=== PATIENT | male | born 1950 | race Caucasian/White ===

== ENCOUNTER → 2021-05-06 | Outpatient (CLI) | payer OTHER ==
[~2021-05-06] MED LIST: CARDIZEM CD120 MG PO; CEPHALEXIN500 MG PO; LAMICTAL 25 MG25 MG PO; LAMOTRIGINE150 MG PO; PRADAXA150 MG PO
== END ==
LOC: SJCVC 15:47
PROVIDERS: ATTEND Internal Medicine
DX: I95.1 Orthostatic hypotension (principal); R06.02 Shortness of breath; R42 Dizziness and giddiness; E78.5 Hyperlipidemia, unspecified; I48.91 Unspecified atrial fibrillation; G40.909 Epilepsy, unspecified, not intractable, without status epilepticus; Z98.890 Other specified postprocedural states; Z86.79 Personal history of other diseases of the circulatory system; Z72.89 Other problems related to lifestyle; Z79.899 Other long term (current) drug therapy

== ENCOUNTER 2021-05-08 19:03 | Emergency (ER) | payer OTHER ==
[~2021-05-08] VITALS: Ht 175.3 cm; Wt 60.3 kg
--- NOTE | ~2021-05-08 | EMS ---
[address] [address] EMS Patient Care Report Name: ERLIN BERGER Room #: REG LITO Presley#: [id number] Admission: 05/08/21 Attend Phys: Discharge: Date of : 54 Report #: [id number] THIS REPORT FOR: //name// Report Transmitted: 05/08/2021 19:36 EMS Care Summary [facility] MED-ACT Incident [id number] @ 05/08/2021 18:29 Incident Location [address] [place] [address] Patient ERLIN BERGER Male, 70 Years 1950 Patient Address [address] [place] [address] Patient History Seizures, Patient Allergies Intravenous Dye, Patient Medications None Reported, Chief Complaint "I felt light headed" Disposition Transported No Lights/[place]patch Reason Unconscious/Fainting Transported To [facility] Narrative Upon arrival pt was found with S49 and bystanders. Pt was sitting on a chair, a&ox3, airway open, self maintained, respirations regular, pulse regular, pale, diaphoretic, warm, skin. Crew was informed by pt that he was walking into a store when he became light headed. Pt sat on the floor and a bystander called [address] [address] EMS Patient Care Report Name: ERLIN BERGER Room #: REG ER Sakina#: [id number] Admission: 05/08/21 Attend Phys: Discharge: Date of : 54 Report #: [id number] 911. current temperatures are over 90 degrees. Upon arrival rapid assessment was performed. Vitals were obtained. Pt denied chest pain, SOA, pain anywhere, or over exerting himself today. Pt was assisted to stretcher, was secured, and, was taken to ambulance. Pt was placed on playground monitor, 12 lead ECG was obtained being unremarkable. IV access was obtained, fluids were obtained, and pt was transported. Detailed assessment was done en route being normal or not significant except where noted. Vitals were monitored and rechecked. Pt's vitals, skin color, and light headedness improved during transport. Pt care was transferred to ED RN. Pt was moved to ED bed without complications. 99.8 Initial Vitals @18:47P: 109,SpO2: 94,TX Suspected: false @PTAP: 120,R: 20,BP: 87/58,Pain: 0/10,GCS: 15,SpO2: 92,Revised Trauma: 11, @18:54P: 104,R: 20,BP: 120/61,Pain: 0/10,GCS: 15,SpO2: 95,Revised Trauma: 12, @18:46P: 106,R: 20,BP: 125/71,Pain: 0/10,GCS: 15,Temp: 99.8F,SpO2: 92,Revised Trauma: 12, Assessments @18:57MENTAL:No Abnormalities,SKIN:No Abnormalities,HEENT:Head/Face: No Abnormalities,Eyes: No Abnormalities,Neck/Airway: No Abnormalities,LUNG SOUNDS:General: No Abnormalities,Left Upper: No Abnormalities,Right Upper: No Abnormalities,Left Lower: No Abnormalities,Right Lower: No Abnormalities,ABDOMEN:General: No Abnormalities,Left Upper: No Abnormalities,Right Upper: No Abnormalities,Left Lower: No Abnormalities,Right Lower: No Abnormalities,PELVIS//GI:EXTREMITIES:Left Arm: No Abnormalities,Right Arm: No Abnormalities,Left Leg: No Abnormalities,Right Leg: No Abnormalities,PULSE:NEURO:No Abnormalities, Impression Syncope / Fainting Procedures @18:49Normal Saline (.9% NaCl) 500cc (18 ga) Site: Forearm-LeftResponse: UnchangedSucceeded@18:56Surgical Mask on PatientResponse: Unchanged@18:4712-Lead ECG Timeline [employer] COORDINATOR,BP: 87/58 M,PULSE: 120,RR: 20 R,SPO2: 92 Ox,ETCO2: ,BG: ,PAIN: 0,GCS: 15, 18:27,Call Received 18:27,Psap Call 18:29,Dispatched 18:29,En Route 18:37,On Scene 18:39,At Patient [address] [address] EMS Patient Care Report Name: ERLIN BERGER Room #: REG Sakina#: [id number] Admission: 05/08/21 Attend Phys: Discharge: Date of : 54 Report #: [id number] 18:46,BP: 125/71 M,PULSE: 106,RR: 20 R,SPO2: 92 Ox,ETCO2: ,BG: ,PAIN: 0,GCS: 15, 18:47,12-Lead ECG, 18:47,BP: / M,PULSE: 109,RR: R,SPO2: 94 Ox,ETCO2: ,BG: ,PAIN: ,GCS: , 18:49,Depart Scene 18:49,Normal Saline (.9% NaCl) 500cc 18 ga Site: Forearm-Left,Response: UnchangedSucceeded, 18:54,BP: 120/61 M,PULSE: 104,RR: 20 R,SPO2: 95 Ox,ETCO2: ,BG: ,PAIN: 0,GCS: 15, 18:56,Surgical Mask on Patient,Response: Unchanged 19:00,At Destination 19:21,Call Closed Disclaimer v1.1 Copyright 2020 [employer] This EMS Care Summary contains data elements from the applicable legal record (which may be displayed differently). It is designed to provide pertinent information for the following purposes: continuity of care, clinical quality, and state data reporting. The complete legal record is available to ED staff and administrators of the receiving hospital in [employer]'s Patient Tracker. All data is provided "as is."
[~2021-05-08 19:03] MED LIST changes: -CEPHALEXIN500 MG PO
[2021-05-08 19:29] LABS: HEMATOCRIT 31.6 % (42.0-52.0); HEMOGLOBIN 10.8 gm/dL (14.0-18.0); MCH 37.9 pg (26.0-34.0); MCHC 34.1 g/dL (28.0-37.0); MCV 111.3 fL (80.0-100.0); PLATELET COUNT 145 thou/uL (150-400); RBC 2.84 mil/uL (4.50-6.00); WBC 3.3 thou/uL (4.0-11.0)
[2021-05-08 19:39] LABS: ANION GAP 20 mmol/L (7-16); BUN 10 mg/dL (7-18); CALCIUM 8.4 mg/dL (8.5-10.1); CHLORIDE 102 mmol/L (98-107); CO2 21 mmol/L (21-32); CREATININE 1.3 mg/dL (0.7-1.3); GLUCOSE 73 mg/dL (74-106); POTASSIUM 3.2 mmol/L (3.5-5.1); SODIUM 143 mmol/L (136-145)
[2021-05-08 19:49] LABS: ALBUMIN 3.5 g/dL (3.4-5.0); SGOT 117 U/L (15-37); SGPT 54 U/L (30-65); TOTAL BILIRUBIN 0.5 mg/dL (0.2-1.0); TOTAL PROTEIN 6.2 g/dL (6.4-8.2); TROPONIN-I <0.06 ng/mL (<0.06)
[2021-05-08 20:19] LABS: ABSOLUTE NEUTROPHILS 1.6 thou/uL (1.4-8.2); MACROCYTES 3+; POLYCHROMASIA 1+
[2021-05-08 20:33] LABS: URINE BILIRUBIN NEGATIVE (Negative); URINE BLOOD TRACE (Negative); URINE CLARITY CLEAR; URINE COLOR YELLOW; URINE GLUCOSE-RANDOM* NEGATIVE (Negative); URINE KETONES NEGATIVE (Negative); URINE NITRITE-REFLEX NEGATIVE (Negative); URINE PROTEIN (DIPSTICK) NEGATIVE (Negative)
[2021-05-08 20:34] LABS: URINE LEUKOCYTES-REFLEX 2+ (Negative)
[2021-05-08 20:51] LABS: BACTERIA-REFLEX 1-9 Few /HPF (None Seen); CASTS None Seen /LPF (None Seen); CRYSTALS None Seen /LPF (None Seen); SQUAMOUS 0-3 Few /LPF (0-3); URINE RBC 1-2 Rare /HPF (NONE SEEN); URINE WBC-REFLEX 6-15 Few /HPF (0-5)
[2021-05-08] MEDS ORDERED: CEPHALEXIN500 MG PO (21:10)
[2021-05-08 21:53] VITALS: BP 122/67
--- NOTE | 2021-05-09 07:31 | EKG ---
[place] [address] [facility] [place] [employer] [place] [address] ELECTROCARDIOGRAM REPORT Name: ERLIN BERGER [facility] [id number] Admission: 05/08/21 Attend Phys: Discharge: 05/08/21 Date of : 54 Report #: [id number] [facility] ED Test Date: 2021-05-08 Test Time: 19:40:07 Pat Name: ERLIN BERGER Department: Room: Gender: M Food Vendor: magnus : 1950 Requested By: Davey Hampton Order Number: [id number] MD: Santosh Cuellar Measurements Intervals [place] Rate: 88 P: -1 VT: 143 QRS: 35 QRSD: 91 T: 61 QT: 351 QTc: 425 Interpretive Statements Sinus rhythm Artifact in lead(s) I,II,III,aVR,aVL Compared to ECG 03/24/2013 09:14:43 No significant changes Electronically Signed On 05-09-2021 7:31:21 CDT by Santosh Cuellar [email or web address] <ELECTRONICALLY SIGNED> By: Santosh Cuellar MD, [facility] 05/09/21 0731 39 39 Santosh Cuellar MD, FACC /EPI
== END 2021-05-08 21:20 | disposition home or self-care (01) ==
LOC: ER 19:03
PROVIDERS: Emergency Medicine
DX: R55 Syncope and collapse (principal); N39.0 Urinary tract infection, site not specified; Z88.8 Allergy status to other drugs, medicaments and biological substances; Z98.890 Other specified postprocedural states

== ENCOUNTER 2021-05-24 16:47 | Emergency (ER) | payer OTHER ==
[~2021-05-24] VITALS: Ht 175.3 cm; Wt 61.2 kg
--- NOTE | ~2021-05-24 | EMS ---
[address] [address] EMS Patient Care Report Name: ERLIN BERGER Room #: REG LITO Presley#: [id number] Admission: 05/24/21 Attend Phys: Discharge: Date of : 54 Report #: [id number] THIS REPORT FOR: //name// Report Transmitted: 05/24/2021 16:24 EMS Care Summary [facility] MED-ACT Incident [id number] @ 05/24/2021 16:10 Incident Location [address] [place] [address] Patient ERLIN BERGER Male, 70 Years 1950 Patient Address [address] [place] [address] Patient History None Reported, Patient Allergies Intravenous Dye, Patient Medications None Reported, Chief Complaint near syncope Disposition Transported No Lights/[place] Dispatch Reason Convulsions/Seizure Transported To [facility] Narrative Dispatched to a grocery store for a seizure. The pt is found sitting on a chair by the self check out. He is alert and in no apparent distress. Bystanders on scene report the pt was checking out his groceries when he started to get light headed, pale and diaphoretic. They helped sit him in a chair and reported he [facility] [address] [place] [address] EMS Patient Care Report Name: ERLIN BERGER Room #: REG ER Sakina#: [id number] Admission: 05/24/21 Attend Phys: Discharge: Date of : 54 Report #: [id number] did not lose consciousness or fall. They deny the pt having any seizure like activity. The pt said he was feeling light headed but once he sat down he started feeling better. The pt denies any shortness of breath, weakness, pain or nausea/vomiting. He said he was taken by ambulance in April for the same thing and was diagnosed with hypotension and told he was dehydrated. They gave him fluids and discharged him. The pt said he has felt fine since then. He is able to stand and pivot with assistance to the cot. He is moved to the ambulance and transported to [place] without lights and sirens. The pt remained unchanged during transport and upon arrival at ED the pt is able to scoot over to ED bed. Pt care/report left with nurse. Initial Vitals @16:30P: 77,R: 12,SpO2: 99,DE Suspected: false @16:37P: 77,R: 12,BP: 136/64,SpO2: 95, @16:26P: 88,R: 12,BP: 92/58,Pain: 0/10,GCS: 15,Temp: 98F,Glucose: 168,SpO2: 98,Revised Trauma: 12,DE Suspected: false Assessments @16:25MENTAL:Person Oriented,Time Oriented,Place Oriented,Event Oriented,SKIN:Diaphoresis,Pale,HEENT:Head/Face: No Abnormalities,Neck/Airway: No Abnormalities,LUNG SOUNDS:General: No Abnormalities,ABDOMEN:General: No Abnormalities,PELVIS//GI:EXTREMITIES:Left Arm: No Abnormalities,Right Arm: No Abnormalities,Left Leg: No Abnormalities,Right Leg: No Abnormalities,PULSE:NEURO:No Abnormalities, Impression Hypotension Procedures @16:3012-Lead ECG Timeline 16:08,Call Received 16:08,Psap Call 16:10,Dispatched 16:11,En Route 16:20,On Scene 16:22,At Patient 16:26,BP: 92/58 M,PULSE: 88,RR: 12 R,SPO2: 98 Ox,ETCO2: ,B,PAIN: 0,GCS: 15, 16:30,12-Lead ECG, 16:30,BP: / M,PULSE: 77,RR: 12 R,SPO2: 99 Ox,ETCO2: ,BG: ,PAIN: ,GCS: , 16:33,Depart Scene 16:37,BP: 136/64 M,PULSE: 77,RR: 12 R,SPO2: 95 Ox,ETCO2: ,BG: ,PAIN: ,GCS: , 16:44,At Destination 16:59,Call Closed [facility] [address] [place] [address] EMS Patient Care Report Name: ERLIN BERGER NEG Room #: REG [facility] [id number] Admission: 05/24/21 Attend Phys: Discharge: Date of : 54 Report #: [id number] Disclaimer v1.1 Copyright 2020 [employer] This EMS Care Summary contains data elements from the applicable legal record (which may be displayed differently). It is designed to provide pertinent information for the following purposes: continuity of care, clinical quality, and state data reporting. The complete legal record is available to ED staff and administrators of the receiving hospital in [facility]'s Patient Tracker. All data is provided "as is."
[~2021-05-24 16:47] MED LIST changes: +CEPHALEXIN500 MG PO
[2021-05-24] MEDS ORDERED: HYDROCODON-ACE1 EAC7 PO (17:06)
[2021-05-24] MEDS ORDERED: LOSARTAN POTAS100 MG PO (17:06)
[2021-05-24] MEDS ORDERED: CEPHALEXIN500 MG PO (17:07)
[2021-05-24] MEDS ORDERED: LAMOTRIGINE150 MG PO (17:07)
[2021-05-24 17:39] LABS: URINE BLOOD NEGATIVE (Negative); URINE CLARITY CLEAR; URINE COLOR YELLOW; URINE GLUCOSE-RANDOM* NEGATIVE (Negative); URINE KETONES TRACE (Negative); URINE LEUKOCYTES-REFLEX NEGATIVE (Negative); URINE NITRITE-REFLEX NEGATIVE (Negative); URINE PROTEIN (DIPSTICK) NEGATIVE (Negative); URINE SPECIFIC GRAVITY 1.015 (1.005-1.035); URINE UROBILINOGEN 0.2 E.U./dl (0.2-1.0)
[2021-05-24 17:42] LABS: ICTOTEST (BILI CONFIRMATORY) Negative (Negative); URINE BILIRUBIN NEGATIVE (Negative)
[2021-05-24 17:50] LABS: HEMATOCRIT 30.5 % (42.0-52.0); HEMOGLOBIN 10.7 gm/dL (14.0-18.0); MCH 37.6 pg (26.0-34.0); MCHC 34.9 g/dL (28.0-37.0); MCV 107.8 fL (80.0-100.0); PLATELET COUNT 82 thou/uL (150-400); RBC 2.83 mil/uL (4.50-6.00); RDW 13.5 % (10.5-14.5); WBC 2.9 thou/uL (4.0-11.0)
[2021-05-24 18:07] LABS: ALBUMIN 3.2 g/dL (3.4-5.0); ANION GAP 11 mmol/L (7-16); BUN 8 mg/dL (7-18); CALCIUM 8.8 mg/dL (8.5-10.1); CO2 31 mmol/L (21-32); GLUCOSE 115 mg/dL (74-106); LIPASE 199 U/L (73-393); POTASSIUM 2.6 mmol/L (3.5-5.1); SGOT 92 U/L (15-37); SGPT 49 U/L (16-63); SODIUM 136 mmol/L (136-145); TOTAL BILIRUBIN 0.7 mg/dL (0.2-1.0); TOTAL PROTEIN 6.4 g/dL (6.4-8.2); TROPONIN-I <0.06 ng/mL (<0.06)
[2021-05-24 18:08] LABS: CHLORIDE 94 mmol/L (98-107)
[2021-05-24 18:25] LABS: ABSOLUTE NEUTROPHILS 1.7 thou/uL (1.4-8.2); NUCLEATED RBCS 1 /100WBC
[2021-05-24 18:26] LABS: MACROCYTES 2+
[2021-05-24] MEDS ORDERED: POTASSIUM20 PO (20:01)
[2021-05-24 20:55] VITALS: BP 130/80
--- NOTE | 2021-05-25 08:13 | EKG ---
[place] [address] [facility] [employer] [place] [address] ELECTROCARDIOGRAM REPORT Name: ERLIN BERGER Room #[facility]ENT[facility]ak[facility] [id number] Admission: 05/24/21 Attend Phys: Discharge: 05/24/21 Date of : 54 Report #: [id number] [facility] ED Test Date: 2021-05-24 Test Time: 16:55:22 Pat Name: ERLIN BERGER Department: Room: Gender: Supply Coordinator: KF : 1950 Requested By: Davey Hampton Order Number: [id number] MD: Santosh Cuellar Measurements Intervals [place] Rate: 71 P: 34 IN: 145 QRS: 29 QRSD: 104 T: 65 QT: 396 QTc: 431 Interpretive Statements Sinus rhythm Compared to ECG 05/08/2021 19:40:07 No significant changes Electronically Signed On 05-25-2021 8:12:53 CDT by Santosh Cuellar [email or web address] <ELECTRONICALLY SIGNED> By: Santosh Cuellar MD, [facility] 05/25/21 0812 1655 1655 Santosh Cuellar MD, FACC /EPI
== END 2021-05-24 20:55 | disposition home or self-care (01) ==
LOC: ER 16:47
PROVIDERS: Emergency Medicine
DX: E87.6 Hypokalemia (principal); R55 Syncope and collapse; Z79.84 Long term (current) use of oral hypoglycemic drugs; Z91.09 Other allergy status, other than to drugs and biological substances; Z72.89 Other problems related to lifestyle